=== PATIENT | male | born 1995 | race African-American/Black ===

== ENCOUNTER 2019-09-09 21:24 | Emergency (ER) | payer SELFPAY ==
[~2019-09-09] VITALS: Ht 185.4 cm; Wt 79.8 kg
[2019-09-09 21:35] VITALS: BP 105/62
--- NOTE | 2019-09-09 21:35 | NUR ---
ED Nurse Note: Walk-in patient with complaints of constipation x 1 week, patient admits taking narcotics.
--- NOTE | 2019-09-09 21:39 | Emergency Room Report ---
History of Present Illness General Chief Complaint: Constipation Source: Patient Present Illness HPI 24-year-old male presents with constipation, patient has been taking Percocet for his jaw pain after he fractured it, he just had his wires removed, he is been having hard stools, last stool was Monday, no nausea no vomiting, he does not endorse abdominal fullness severity is mild, constant no dysuria, patient presents for evaluation. Constipation is aggravated by Percocet Allergies: Uncoded Allergies: FISH (Allergy, Unknown, 09/09/19) Patient History Past Medical History: see triage record Reviewed Nursing Documentation: PMH: Agreed; PSxH: Agreed Nursing Documentation-PMH Past Medical History: No History, Except For Hx Asthma: Yes Review of Systems All Other Systems: negative except mentioned in HPI Physical Exam Vital Signs Date Time Temp Pulse Resp B/P (MAP) Pulse Ox O2 Delivery O2 Flow Rate FiO2 09/09/19 21:27 98.6 55 18 105/62 (76) 99 Room Air General Appearance: well appearing, no apparent distress Head: normocephalic, atraumatic ENT: hearing grossly normal, normal voice Neck: full range of motion, supple Respiratory: no respiratory distress, speaking full sentences Cardiovascular #1: regular rate, rhythm, no edema, no gallop Gastrointestinal: non tender, soft, no guarding Musculoskeletal: gait/station normal Neurologic: alert, normal gait Psychiatric: mood/affect normal Skin: no rash Medical Decision Making Diagnostic Impression: Primary Impression: Constipation Qualified Codes: K59.00 - Constipation, unspecified ER Course 24-year-old male with constipation, will provide mag citrate here, counseled patient about a proper bowel regimen, doubt obstruction, no surgeries to the abdomen, Disposition home with return precautions Last Vital Signs Date Time Temp Pulse Resp B/P (MAP) Pulse Ox O2 Delivery O2 Flow Rate FiO2 09/09/19 21:27 98.6 55 18 105/62 (76) 99 Room Air Disposition: HOME, SELF-CARE Condition: Stable Referrals: [facility]. [facility] Patient Instructions: Constipation, Adult Additional Instructions: The patient was provided with discharge instructions, notified to follow-up with a primary care doctor and or specialist in the next 24-48 hours, and to return to the ED if they have worsening of their symptoms. Please note that this report is being documented using DRAGON technology. This can lead to erroneous entry secondary to incorrect interpretation by the dictating instrument. please utilize miralax. Yony Green MD Sep 09, 2019 21:39
[2019-09-09] MEDS ORDERED: Magnesium Citrate Liq Btl ORAL ONE (21:45)
[2019-09-09 21:50] VITALS: BP 105/62
--- NOTE | 2019-09-09 21:50 | NUR ---
ER DISCHARGE NOTE: Patient is cleared to be discharged per ERMD, pt is aox4, on room air, with stable vital signs. pt was given dc and prescription instructions, pt was able to verbalize understanding, pt id band removed. pt is able to ambulate with steady gait. pt took all belongings.
== END 2019-09-09 22:00 | disposition home or self-care (01) ==
LOC: EMR 21:58
DX: K59.00 Constipation, unspecified (principal)
CPT/HCPCS: 99282